=== PATIENT | female | born 2000 | race Caucasian/White ===

== ENCOUNTER 2021-07-31 13:10 | Emergency (ER) | payer OTHER ==
[~2021-07-31] VITALS: Ht 165.1 cm; Wt 70.0 kg
[2021-07-31 16:30] LABS: BASOPHILS % 1.2 % (0.0-2.0); EOSINOPHILS % 9.6 % (0.0-5.0); HEMATOCRIT. 38.7 % (36.0-48.0); HEMOGLOBIN. 12.8 g/dL (12.0-16.0); LYMPHOCYTES % 28.1 % (20.0-50.0); MEAN CORPUSCULAR HEMOGLOBIN 32.9 pg (28.0-32.0); MEAN CORPUSCULAR VOLUME 99.6 fL (81.0-99.0); MEAN PLATELET VOLUME 8.5 fl (7.4-10.4); MONOCYTES % 5.7 % (2.0-8.0); NEUTROPHILS % 55.4 % (40.0-76.0); PLATELET 248 x1000/uL (130-400); RED BLOOD CELL COUNT 3.89 mill/uL (4.2-5.4); RED CELL DISTRIBUTION WIDTH 13.7 % (11.6-14.6)
[2021-07-31 16:34] LABS: CHLORIDE 102 mEq/L (98-107)
[2021-07-31 16:38] LABS: PROTHROMBIN TIME 10.3 sec (9.6-11.0)
[2021-07-31 17:38] VITALS: BP 129/86
== END 2021-07-31 18:05 | disposition short-term general hospital (02) ==
LOC: ER 13:10 → CANBEDREQ 17:58 → ER 18:05
DX: T82.514A Breakdown (mechanical) of infusion catheter, initial encounter (principal); Y82.8 Other medical devices associated with adverse incidents; Y92.018 Other place in single-family (private) house as the place of occurrence of the external cause; N18.6 End stage renal disease; F84.0 Autistic disorder; G40.909 Epilepsy, unspecified, not intractable, without status epilepticus; Z99.2 Dependence on renal dialysis; Z91.15 Patient's noncompliance with renal dialysis
CPT/HCPCS: 36415; 71045; 80053; 85025; 99285

== ENCOUNTER 2021-10-19 16:27 | Emergency (ER) | payer MEDICAID, OTHER ==
[~2021-10-19] VITALS: Ht 157.5 cm; Wt 65.0 kg
[2021-10-19 20:06] LABS: BASOPHILS % 0.9 % (0.0-2.0); EOSINOPHILS % 1.6 % (0.0-5.0); HEMATOCRIT. 27.2 % (36.0-48.0); LYMPHOCYTES % 23.3 % (20.0-50.0); MEAN CORPUSCULAR HEMOGLOBIN 33.4 pg (28.0-32.0); MEAN CORPUSCULAR VOLUME 101.5 fL (81.0-99.0); MEAN PLATELET VOLUME 7.9 fl (7.4-10.4); MONOCYTES % 13.4 % (2.0-8.0); NEUTROPHILS % 60.8 % (40.0-76.0); PLATELET 405 x1000/uL (130-400); RED BLOOD CELL COUNT 2.68 mill/uL (4.2-5.4); RED CELL DISTRIBUTION WIDTH 15.1 % (11.6-14.6)
[2021-10-19 20:13] LABS: CHLORIDE 117 mEq/L (98-107)
[2021-10-19 20:35] VITALS: BP 123/79
== END 2021-10-19 20:49 | disposition short-term general hospital (02) ==
LOC: ER 16:27
DX: U07.1 COVID-19 (principal); T82.41XA Breakdown (mechanical) of vascular dialysis catheter, initial encounter; X58.XXXA Exposure to other specified factors, initial encounter
CPT/HCPCS: 36415; 71045; 80053; 85025; 87426; 99285

== ENCOUNTER 2021-11-10 09:00 | Emergency (ER) | payer MEDICAID, OTHER ==
[~2021-11-10] VITALS: Ht 154.9 cm; Wt 54.0 kg
[2021-11-10 09:11] VITALS: BP 118/75
[2021-11-10 10:09] LABS: BASOPHILS % 1.5 % (0.0-2.0); EOSINOPHILS % 2.2 % (0.0-5.0); HEMATOCRIT. 34.8 % (36.0-48.0); HEMOGLOBIN. 11.2 g/dL (12.0-16.0); LYMPHOCYTES % 26.1 % (20.0-50.0); MEAN CORPUSCULAR HEMOGLOBIN 35.1 pg (28.0-32.0); MEAN CORPUSCULAR VOLUME 109.2 fL (81.0-99.0); MEAN PLATELET VOLUME 7.8 fl (7.4-10.4); MONOCYTES % 6.8 % (2.0-8.0); NEUTROPHILS % 63.4 % (40.0-76.0); PLATELET 458 x1000/uL (130-400); RED BLOOD CELL COUNT 3.19 mill/uL (4.2-5.4); RED CELL DISTRIBUTION WIDTH 19.4 % (11.6-14.6)
[2021-11-10 10:16] LABS: CHLORIDE 102 mEq/L (98-107)
[2021-11-10 10:21] LABS: PARTIAL THROMBOPLASTIN TIME 28.4 sec (23.4-31.0); PROTHROMBIN TIME 10.8 sec (9.6-11.0)
[2021-11-10] MEDS ORDERED: CEFAZOLIN 1000MG PREMIX 50 ML IV SCH (12:15)
[2021-11-10] MEDS ORDERED: LIDOCAINE HCL 1% 20ML VIAL (Pyxis) INJ ONE (12:39)
== END 2021-11-10 12:57 | disposition home or self-care (01) ==
LOC: ER 09:00
DX: T85.618A Breakdown (mechanical) of other specified internal prosthetic devices, implants and grafts, initial encounter (principal); N18.6 End stage renal disease; D53.9 Nutritional anemia, unspecified; Z20.822 Contact with and (suspected) exposure to COVID-19; Z99.2 Dependence on renal dialysis; Z98.890 Other specified postprocedural states
CPT/HCPCS: 36415; 71045; 80053; 85025; 87426; 99284; J1642; J3490

== ENCOUNTER 2021-11-20 09:16 | Emergency (ER) | payer OTHER ==
[~2021-11-20] VITALS: Ht 165.1 cm; Wt 59.0 kg
[2021-11-20 12:46] LABS: BASOPHILS % 1.4 % (0.0-2.0); EOSINOPHILS % 3.9 % (0.0-5.0); HEMATOCRIT. 41.9 % (36.0-48.0); HEMOGLOBIN. 13.6 g/dL (12.0-16.0); LYMPHOCYTES % 20.1 % (20.0-50.0); MEAN CORPUSCULAR HEMOGLOBIN 35.6 pg (28.0-32.0); MEAN CORPUSCULAR VOLUME 109.9 fL (81.0-99.0); MEAN PLATELET VOLUME 8.1 fl (7.4-10.4); MONOCYTES % 4.3 % (2.0-8.0); NEUTROPHILS % 70.3 % (40.0-76.0); PLATELET 383 x1000/uL (130-400); RED BLOOD CELL COUNT 3.82 mill/uL (4.2-5.4); RED CELL DISTRIBUTION WIDTH 17.9 % (11.6-14.6)
[2021-11-20 12:52] LABS: CHLORIDE 113 mEq/L (98-107)
[2021-11-20 13:25] LABS: HCG SCREEN NEGATIVE
[2021-11-20 15:28] LABS: PROTHROMBIN TIME 10.5 sec (9.6-11.0)
[2021-11-20 18:13] VITALS: BP 120/88
== END 2021-11-20 18:29 | disposition short-term general hospital (02) ==
LOC: ER 09:16 → CANBEDREQ 18:46
DX: T82.41XA Breakdown (mechanical) of vascular dialysis catheter, initial encounter (principal); N18.6 End stage renal disease; Z20.822 Contact with and (suspected) exposure to COVID-19; E83.52 Hypercalcemia; Z99.2 Dependence on renal dialysis; Y82.8 Other medical devices associated with adverse incidents; Y92.89 Other specified places as the place of occurrence of the external cause
CPT/HCPCS: 36415; 71045; 80053; 84703; 85025; 87426; 93005; 99285

== ENCOUNTER 2021-11-24 07:06 | Emergency (ER) | payer OTHER ==
[~2021-11-24] VITALS: Ht 165.1 cm; Wt 76.0 kg
[2021-11-24] MEDS ORDERED: PIPERACILLIN/TAZ 3.375G PREMIX 50 ML IV ONE (08:00)
[2021-11-24 08:33] LABS: EOSINOPHILS % 6.4 % (0.0-5.0); HEMATOCRIT. 39.3 % (36.0-48.0); HEMOGLOBIN. 12.7 g/dL (12.0-16.0); LYMPHOCYTES % 15.3 % (20.0-50.0); MEAN CORPUSCULAR HEMOGLOBIN 35.4 pg (28.0-32.0); MEAN CORPUSCULAR VOLUME 109.4 fL (81.0-99.0); MEAN PLATELET VOLUME 8.3 fl (7.4-10.4); MONOCYTES % 7.9 % (2.0-8.0); NEUTROPHILS % 69.4 % (40.0-76.0); PLATELET 268 x1000/uL (130-400); RED CELL DISTRIBUTION WIDTH 16.8 % (11.6-14.6)
[2021-11-24 08:43] LABS: CHLORIDE 110 mEq/L (98-107)
[2021-11-24 08:44] LABS: HCG SCREEN NEGATIVE
[2021-11-24 08:48] LABS: C REACTIVE PROTEIN QUANT 6.5 mg/L (0.0-3.0)
[2021-11-24 09:18] LABS: CLARITY URINE CLEAR (CLEAR); COLOR URINE YELLOW (YELLOW); KETONES URINE NEGATIVE (NEGATIVE); LEUKOCYTE ESTERASE URINE NEGATIVE (NEGATIVE); NITRITE URINE NEGATIVE (NEGATIVE); OCCULT BLOOD URINE TRACE (NEGATIVE); PROTEIN URINE 4+ (NEGATIVE); SPECIFIC GRAVITY URINE 1.018 (1.005-1.030); UROBILINOGEN URINE 0.2 E.U./dL (0.2-1.0)
[2021-11-24 12:00] VITALS: BP 109/63
== END 2021-11-24 12:19 | disposition short-term general hospital (02) ==
LOC: ER 07:06 → CANBEDREQ 11-25 22:44
DX: L03.114 Cellulitis of left upper limb (principal); T79.5XXA Traumatic anuria, initial encounter; Z20.822 Contact with and (suspected) exposure to COVID-19; Z86.59 Personal history of other mental and behavioral disorders; X58.XXXA Exposure to other specified factors, initial encounter; Y93.89 Activity, other specified; Y92.89 Other specified places as the place of occurrence of the external cause; Y99.8 Other external cause status
CPT/HCPCS: 36415; 71045; 73090; 80053; 81003; 83605; 84145; 84703; 85025; 86140; 87040; 87086; 87426; 93005; 93922; 93971; 96365; 96366; 99285; J2543

== ENCOUNTER 2021-12-01 09:28 | Emergency (ER) | payer OTHER ==
[~2021-12-01] VITALS: Ht 160 cm; Wt 50.0 kg
[2021-12-01 10:09] LABS: BASOPHILS % 1.1 % (0.0-2.0); EOSINOPHILS % 3.8 % (0.0-5.0); HEMATOCRIT. 37.5 % (36.0-48.0); HEMOGLOBIN. 12.3 g/dL (12.0-16.0); LYMPHOCYTES % 15.8 % (20.0-50.0); MEAN CORPUSCULAR HEMOGLOBIN 34.7 pg (28.0-32.0); MEAN CORPUSCULAR VOLUME 105.8 fL (81.0-99.0); MEAN PLATELET VOLUME 8.4 fl (7.4-10.4); MONOCYTES % 5.9 % (2.0-8.0); NEUTROPHILS % 73.4 % (40.0-76.0); PLATELET 227 x1000/uL (130-400); RED BLOOD CELL COUNT 3.54 mill/uL (4.2-5.4)
[2021-12-01 10:15] LABS: CHLORIDE 106 mEq/L (98-107)
[2021-12-01 10:20] LABS: PROTHROMBIN TIME 10.5 sec (9.6-11.0)
[2021-12-01] MEDS ORDERED: LIDOCAINE HCL 1% 30ML VIAL (10MG/ML) ONE (13:37)
[2021-12-01] MEDS ORDERED: CEFAZOLIN 1000MG PREMIX 50 ML IV ONE ×2 (13:37→14:00)
[2021-12-01] MEDS ORDERED: PROPOFOL 200MG/20ML VIAL IV ONE (13:57)
[2021-12-01] MEDS ORDERED: FENTANYL CITRATE/PF 50MCG/ML 2ML VIAL ONE (13:57)
[2021-12-01] MEDS ORDERED: MIDAZOLAM HCL 2 MG/2 ML VIAL ONE (13:57)
[2021-12-01] MEDS ORDERED: ONDANSETRON HCL 4MG/2ML INJ ONE (13:58)
[2021-12-01] MEDS ORDERED: DEXAMETHASONE 4MG/ML 1ML VIAL ONE (13:58)
[2021-12-01] MEDS ORDERED: ONDANSETRON HCL 4MG/2ML INJ IV PRN (14:45)
[2021-12-01] MEDS ORDERED: HYDROMORPHONE HCL/PF 2MG/ML CPJ IV PRN (14:45)
[2021-12-01] MEDS ORDERED: LABETALOL 5MG/ML SYR 20 MG/4 ML SYRINGE IV PRN (14:45)
[2021-12-01] MEDS ORDERED: MEPERIDINE HCL/PF 25MG/ML CPJ IV PRN (14:45)
[2021-12-01] MEDS ORDERED: ACETAMINOPHEN 325MG TABLET PO ONE (19:00)
[2021-12-01 21:57] VITALS: BP 122/72
== END 2021-12-01 21:57 | disposition home or self-care (01) ==
LOC: ER 09:28
DX: T85.618A Breakdown (mechanical) of other specified internal prosthetic devices, implants and grafts, initial encounter (principal); I12.9 Hypertensive chronic kidney disease with stage 1 through stage 4 chronic kidney disease, or unspecified chronic kidney disease; N18.9 Chronic kidney disease, unspecified; Z20.822 Contact with and (suspected) exposure to COVID-19; Z86.59 Personal history of other mental and behavioral disorders
CPT/HCPCS: 36415; 71045; 76937; 77001; 80053; 85025; 85610; 87426; 93005; 96365; 99285; C1725; C1750; C1769; J0690; J1100; J1642; J2250; J2405; J2704; J3010; J3490; J7040; Z7610

== ENCOUNTER 2021-12-10 20:41 | Emergency (ER) | payer OTHER ==
[~2021-12-10] VITALS: Ht 162.6 cm; Wt 57.0 kg
[2021-12-10 22:50] LABS: BASOPHILS % 1.3 % (0.0-2.0); EOSINOPHILS % 5.4 % (0.0-5.0); HEMATOCRIT. 38.4 % (36.0-48.0); HEMOGLOBIN. 12.4 g/dL (12.0-16.0); MEAN CORPUSCULAR HEMOGLOBIN 34.2 pg (28.0-32.0); MEAN PLATELET VOLUME 8.2 fl (7.4-10.4); MONOCYTES % 7.6 % (2.0-8.0); NEUTROPHILS % 63.7 % (40.0-76.0); PLATELET 343 x1000/uL (130-400); RED BLOOD CELL COUNT 3.62 mill/uL (4.2-5.4); RED CELL DISTRIBUTION WIDTH 15.5 % (11.6-14.6)
[2021-12-10 22:55] LABS: CHLORIDE 105 mEq/L (98-107)
[2021-12-10 23:01] LABS: ETHANOL BLOOD < 10 mg/dL
[2021-12-10 23:08] LABS: B-HCG QUANTITATIVE < 1 mIU/mL (<3)
[2021-12-11 03:57] VITALS: BP 128/67
== END 2021-12-11 04:01 | disposition home or self-care (01) ==
LOC: ER 20:41
DX: G40.909 Epilepsy, unspecified, not intractable, without status epilepticus (principal); I12.0 Hypertensive chronic kidney disease with stage 5 chronic kidney disease or end stage renal disease; N18.6 End stage renal disease; Z99.2 Dependence on renal dialysis
CPT/HCPCS: 36415; 71045; 74176; 80053; 80320; 84484; 84702; 85025; 93005; 99285; G0480

== ENCOUNTER 2021-12-11 08:56 | Emergency (ER) | payer OTHER ==
[~2021-12-11] VITALS: Ht 162.6 cm; Wt 56.0 kg
[2021-12-11 10:01] LABS: BASOPHILS % 0.9 % (0.0-2.0); EOSINOPHILS % 5.1 % (0.0-5.0); HEMATOCRIT. 38.2 % (36.0-48.0); HEMOGLOBIN. 12.2 g/dL (12.0-16.0); LYMPHOCYTES % 13.7 % (20.0-50.0); MEAN CORPUSCULAR HEMOGLOBIN 34.4 pg (28.0-32.0); MEAN CORPUSCULAR VOLUME 107.5 fL (81.0-99.0); MEAN PLATELET VOLUME 8.2 fl (7.4-10.4); MONOCYTES % 7.2 % (2.0-8.0); NEUTROPHILS % 73.1 % (40.0-76.0); PLATELET 352 x1000/uL (130-400); RED BLOOD CELL COUNT 3.55 mill/uL (4.2-5.4); RED CELL DISTRIBUTION WIDTH 15.8 % (11.6-14.6)
[2021-12-11 10:02] LABS: CHLORIDE 106 mEq/L (98-107)
[2021-12-11 10:12] LABS: HCG SCREEN NEGATIVE
[2021-12-11 13:30] VITALS: BP 118/65
== END 2021-12-11 13:32 | disposition home or self-care (01) ==
LOC: ER 08:56
DX: G40.909 Epilepsy, unspecified, not intractable, without status epilepticus (principal); I12.0 Hypertensive chronic kidney disease with stage 5 chronic kidney disease or end stage renal disease; N18.6 End stage renal disease; Z99.2 Dependence on renal dialysis
CPT/HCPCS: 36415; 80053; 84703; 85025; 93005; 99284

== ENCOUNTER 2022-01-03 09:31 | Emergency (ER) | payer MEDICAID, OTHER ==
[~2022-01-03] VITALS: Ht 162.6 cm; Wt 61.0 kg
[2022-01-03 10:13] LABS: BASOPHILS % 1.1 % (0.0-2.0); EOSINOPHILS % 4.4 % (0.0-5.0); HEMOGLOBIN. 13.3 g/dL (12.0-16.0); LYMPHOCYTES % 17.6 % (20.0-50.0); MEAN CORPUSCULAR HEMOGLOBIN 34.6 pg (28.0-32.0); MEAN CORPUSCULAR VOLUME 103.9 fL (81.0-99.0); MEAN PLATELET VOLUME 9.4 fl (7.4-10.4); NEUTROPHILS % 71.9 % (40.0-76.0); PLATELET 220 x1000/uL (130-400); RED BLOOD CELL COUNT 3.85 mill/uL (4.2-5.4); RED CELL DISTRIBUTION WIDTH 14.5 % (11.6-14.6)
[2022-01-03 10:23] LABS: PROTHROMBIN TIME 10.5 sec (9.6-11.0)
[2022-01-03 10:27] LABS: CHLORIDE 103 mEq/L (98-107)
[2022-01-03 15:04] VITALS: BP 102/72
== END 2022-01-03 15:05 | disposition home or self-care (01) ==
LOC: ER 09:31
DX: T82.49XA Other complication of vascular dialysis catheter, initial encounter (principal); I12.0 Hypertensive chronic kidney disease with stage 5 chronic kidney disease or end stage renal disease; N18.6 End stage renal disease; F99 Mental disorder, not otherwise specified; Z99.2 Dependence on renal dialysis; Y84.1 Kidney dialysis as the cause of abnormal reaction of the patient, or of later complication, without mention of misadventure at the time of the procedure; Y92.018 Other place in single-family (private) house as the place of occurrence of the external cause
CPT/HCPCS: 36415; 71045; 80053; 85025; 87426; 99285

== ENCOUNTER 2022-01-08 08:57 | Emergency (ER) | payer OTHER ==
[~2022-01-08] VITALS: Ht 162.6 cm; Wt 63.1 kg
[2022-01-08] VITALS (14 sets, daily range): BP systolic 113–128; BP diastolic 71–86
[2022-01-08 09:43] LABS: BASOPHILS % 0.9 % (0.0-2.0); EOSINOPHILS % 6.2 % (0.0-5.0); HEMOGLOBIN. 13.4 g/dL (12.0-16.0); LYMPHOCYTES % 17.2 % (20.0-50.0); MEAN CORPUSCULAR HEMOGLOBIN 34.2 pg (28.0-32.0); MEAN CORPUSCULAR VOLUME 104.3 fL (81.0-99.0); MEAN PLATELET VOLUME 10.1 fl (7.4-10.4); NEUTROPHILS % 69.7 % (40.0-76.0); PLATELET 196 x1000/uL (130-400); RED BLOOD CELL COUNT 3.93 mill/uL (4.2-5.4); RED CELL DISTRIBUTION WIDTH 14.6 % (11.6-14.6)
[2022-01-08 09:51] LABS: CHLORIDE 107 mEq/L (98-107)
[2022-01-08] MEDS ORDERED: LIDOCAINE HCL 1% 20ML VIAL (Pyxis) INJ ONE (10:54)
[2022-01-08] MEDS ORDERED: HEPARIN 1000 UNITS/ML 10ML ONE (10:55)
[2022-01-08] MEDS ORDERED: FENTANYL CITRATE/PF 50MCG/ML 2ML VIAL ONE (11:13)
[2022-01-08] MEDS ORDERED: CEFAZOLIN 1000MG PREMIX 50 ML IV ONE ×2 (11:13→11:30)
[2022-01-08] MEDS ORDERED: FENTANYL CITRATE/PF 50MCG/ML 2ML VIAL IV ONE (11:30)
== END 2022-01-08 12:45 | disposition short-term general hospital (02) ==
LOC: ER 08:57 → CANBEDREQ 21:08
DX: T82.41XA Breakdown (mechanical) of vascular dialysis catheter, initial encounter (principal); I12.0 Hypertensive chronic kidney disease with stage 5 chronic kidney disease or end stage renal disease; N18.6 End stage renal disease; Z20.822 Contact with and (suspected) exposure to COVID-19; Y82.8 Other medical devices associated with adverse incidents; Y92.538 Other ambulatory health services establishments as the place of occurrence of the external cause; Z99.2 Dependence on renal dialysis; F79 Unspecified intellectual disabilities; G40.909 Epilepsy, unspecified, not intractable, without status epilepticus
CPT/HCPCS: 36415; 36558; 71045; 77001; 80053; 85025; 87426; 93005; 96365; 96375; 99285; C1750; C1769; J0690; J1644; J3010; J3490; Z7610; 99152; 99153; G0500

== ENCOUNTER 2022-02-15 16:03 | Emergency (ER) | payer OTHER ==
[~2022-02-15] VITALS: Ht 167.6 cm; Wt 68.0 kg
[2022-02-15] MEDS ORDERED: ACETAMINOPHEN 325MG TABLET PO STA (16:56)
[2022-02-15 17:40] LABS: BASOPHILS % 1.2 % (0.0-2.0); EOSINOPHILS % 8.6 % (0.0-5.0); HEMATOCRIT. 28.1 % (36.0-48.0); HEMOGLOBIN. 9.3 g/dL (12.0-16.0); LYMPHOCYTES % 21.9 % (20.0-50.0); MEAN CORPUSCULAR HEMOGLOBIN 33.6 pg (28.0-32.0); MEAN CORPUSCULAR VOLUME 101.4 fL (81.0-99.0); MEAN PLATELET VOLUME 8.4 fl (7.4-10.4); MONOCYTES % 7.3 % (2.0-8.0); PLATELET 245 x1000/uL (130-400); RED BLOOD CELL COUNT 2.77 mill/uL (4.2-5.4)
[2022-02-15 17:53] LABS: CHLORIDE 114 mEq/L (98-107)
[2022-02-15] MEDS ORDERED: ACETAMINOPHEN 325MG TABLET PO NR (19:38)
[2022-02-16 01:40] VITALS: BP 106/67
== END 2022-02-16 01:45 | disposition home or self-care (01) ==
LOC: ER 16:03
DX: R52 Pain, unspecified (principal); I10 Essential (primary) hypertension; Z99.2 Dependence on renal dialysis; D64.9 Anemia, unspecified; Z98.890 Other specified postprocedural states
CPT/HCPCS: 36415; 71045; 80053; 83605; 85025; 99285

== ENCOUNTER 2022-03-06 13:20 | Emergency (ER) | payer OTHER ==
[~2022-03-06] VITALS: Ht 167.6 cm; Wt 70.0 kg
[2022-03-06 13:39] VITALS: BP 117/65
== END 2022-03-06 17:15 | disposition home or self-care (01) ==
LOC: ER 14:49
DX: T82.838A Hemorrhage due to vascular prosthetic devices, implants and grafts, initial encounter (principal); I10 Essential (primary) hypertension; Z98.890 Other specified postprocedural states; Z86.59 Personal history of other mental and behavioral disorders
CPT/HCPCS: 99283

== ENCOUNTER 2022-03-26 10:55 | Emergency (ER) | payer OTHER ==
[~2022-03-26] VITALS: Ht 157.5 cm; Wt 70.0 kg
[2022-03-26 12:40] LABS: BASOPHILS % 0.9 % (0.0-2.0); EOSINOPHILS % 4.4 % (0.0-5.0); LYMPHOCYTES % 14.4 % (20.0-50.0); MEAN CORPUSCULAR HEMOGLOBIN 33.7 pg (28.0-32.0); MEAN CORPUSCULAR VOLUME 103.2 fL (81.0-99.0); MEAN PLATELET VOLUME 9.2 fl (7.4-10.4); MONOCYTES % 5.7 % (2.0-8.0); NEUTROPHILS % 74.6 % (40.0-76.0); PLATELET 223 x1000/uL (130-400); RED BLOOD CELL COUNT 1.52 mill/uL (4.2-5.4); RED CELL DISTRIBUTION WIDTH 15.6 % (11.6-14.6)
[2022-03-26 12:43] LABS: HEMATOCRIT. 15.7 % (36.0-48.0); HEMOGLOBIN. 5.1 g/dL (12.0-16.0)
[2022-03-26 12:50] LABS: CHLORIDE 106 mEq/L (98-107)
[2022-03-26 14:21] VITALS: BP 123/62
== END 2022-03-26 15:20 | disposition short-term general hospital (02) ==
LOC: ER 13:05
DX: D64.89 Other specified anemias (principal); E11.649 Type 2 diabetes mellitus with hypoglycemia without coma; J02.9 Acute pharyngitis, unspecified; R05.9 Cough, unspecified; I12.0 Hypertensive chronic kidney disease with stage 5 chronic kidney disease or end stage renal disease; N18.6 End stage renal disease; E11.22 Type 2 diabetes mellitus with diabetic chronic kidney disease; Z99.2 Dependence on renal dialysis
CPT/HCPCS: 36415; 80053; 82962; 85025; 86850; 86900; 93005; 99284

== ENCOUNTER 2022-04-10 09:04 | Emergency (ER) | payer OTHER ==
[~2022-04-10] VITALS: Ht 167.6 cm; Wt 81.0 kg
[2022-04-10 12:20] LABS: CHLORIDE 108 mEq/L (98-107)
[2022-04-10 12:32] LABS: EOSINOPHILS % 6.2 % (0.0-5.0); HEMATOCRIT. 26.6 % (36.0-48.0); HEMOGLOBIN. 8.7 g/dL (12.0-16.0); LYMPHOCYTES % 19.6 % (20.0-50.0); MEAN CORPUSCULAR HEMOGLOBIN 32.8 pg (28.0-32.0); MEAN CORPUSCULAR VOLUME 100.4 fL (81.0-99.0); MEAN PLATELET VOLUME 8.4 fl (7.4-10.4); MONOCYTES % 6.4 % (2.0-8.0); NEUTROPHILS % 66.8 % (40.0-76.0); PLATELET 286 x1000/uL (130-400); RED BLOOD CELL COUNT 2.65 mill/uL (4.2-5.4); RED CELL DISTRIBUTION WIDTH 18.7 % (11.6-14.6)
[2022-04-10 12:47] LABS: PROTHROMBIN TIME 10.5 sec (9.6-11.0)
[2022-04-10] MEDS ORDERED: LIDOCAINE HCL 1% 10 MG/ML 10ML VIAL ONE (12:54)
[2022-04-10 17:25] VITALS: BP 111/55
== END 2022-04-10 17:40 | disposition home or self-care (01) ==
LOC: ER 09:12
DX: Z49.01 Encounter for fitting and adjustment of extracorporeal dialysis catheter (principal); Z20.822 Contact with and (suspected) exposure to COVID-19
CPT/HCPCS: 36415; 36589; 80053; 85025; 85610; 87426; 99283; C9803; J3490

== ENCOUNTER 2022-05-18 08:17 | Emergency (ER) | payer OTHER, MEDICAID ==
[~2022-05-18] VITALS: Ht 160 cm; Wt 64.0 kg
[2022-05-18 08:55] LABS: BASOPHILS % 1.2 % (0.0-2.0); HEMATOCRIT. 26.3 % (36.0-48.0); HEMOGLOBIN. 9.2 g/dL (12.0-16.0); LYMPHOCYTES % 23.3 % (20.0-50.0); MEAN CORPUSCULAR HEMOGLOBIN 36.5 pg (28.0-32.0); MEAN CORPUSCULAR VOLUME 103.6 fL (81.0-99.0); MEAN PLATELET VOLUME 8.4 fl (7.4-10.4); MONOCYTES % 7.3 % (2.0-8.0); NEUTROPHILS % 58.2 % (40.0-76.0); PLATELET 280 x1000/uL (130-400); RED BLOOD CELL COUNT 2.54 mill/uL (4.2-5.4); RED CELL DISTRIBUTION WIDTH 16.6 % (11.6-14.6)
[2022-05-18 08:59] LABS: CHLORIDE 105 mEq/L (98-107)
[2022-05-18 09:07] LABS: ETHANOL BLOOD < 10 mg/dL
[2022-05-18] MEDS ORDERED: LEVETIRACETAM 1000MG PREMIX 100 ML IV ONE (09:15)
[2022-05-18 09:18] LABS: HCG SCREEN NEGATIVE
[2022-05-18 11:38] VITALS: BP 105/56
== END 2022-05-18 13:02 | disposition home or self-care (01) ==
LOC: ER 08:17
DX: R56.9 Unspecified convulsions (principal); N18.6 End stage renal disease; Z98.890 Other specified postprocedural states; Z99.2 Dependence on renal dialysis
CPT/HCPCS: 36415; 80053; 80320; 84703; 85025; 93005; 96374; 99284; J1953; Z7610; G0480

== ENCOUNTER 2022-08-01 10:21 | Emergency (ER) | payer MEDICAID, OTHER ==
[~2022-08-01] VITALS: Ht 162.6 cm; Wt 59.0 kg
[2022-08-01 11:42] LABS: BASOPHILS % 0.9 % (0.0-2.0); HEMATOCRIT. 25.5 % (36.0-48.0); HEMOGLOBIN. 8.9 g/dL (12.0-16.0); LYMPHOCYTES % 22.8 % (20.0-50.0); MEAN CORPUSCULAR HEMOGLOBIN 36.2 pg (28.0-32.0); MEAN CORPUSCULAR VOLUME 104.4 fL (81.0-99.0); MEAN PLATELET VOLUME 10.3 fl (7.4-10.4); MONOCYTES % 7.5 % (2.0-8.0); NEUTROPHILS % 55.8 % (40.0-76.0); PLATELET 213 x1000/uL (130-400); RED BLOOD CELL COUNT 2.45 mill/uL (4.2-5.4); RED CELL DISTRIBUTION WIDTH 12.1 % (11.6-14.6)
[2022-08-01 11:51] LABS: CHLORIDE 103 mEq/L (98-107)
[2022-08-01 12:00] VITALS: BP 124/70
[2022-08-01 12:00] LABS: ETHANOL BLOOD < 10 mg/dL
== END 2022-08-01 13:26 | disposition home or self-care (01) ==
LOC: ER 10:21 → CANBEDREQ 13:55
DX: G40.909 Epilepsy, unspecified, not intractable, without status epilepticus (principal); N18.6 End stage renal disease; F84.0 Autistic disorder; Z99.2 Dependence on renal dialysis; Z79.899 Other long term (current) drug therapy
CPT/HCPCS: 36415; 80053; 80320; 85025; 93005; 99284; G0480

== ENCOUNTER 2022-08-20 11:34 | Emergency (ER) | payer OTHER ==
[~2022-08-20] VITALS: Ht 165.1 cm; Wt 63.0 kg
[2022-08-20 14:04] VITALS: BP 103/62
[2022-08-20 15:10] LABS: BASOPHILS % 0.7 % (0.0-2.0); EOSINOPHILS % 9.1 % (0.0-5.0); HEMATOCRIT. 24.2 % (36.0-48.0); HEMOGLOBIN. 8.3 g/dL (12.0-16.0); MEAN CORPUSCULAR VOLUME 104.8 fL (81.0-99.0); MEAN PLATELET VOLUME 8.3 fl (7.4-10.4); MONOCYTES % 6.1 % (2.0-8.0); NEUTROPHILS % 65.1 % (40.0-76.0); PLATELET 244 x1000/uL (130-400); RED BLOOD CELL COUNT 2.31 mill/uL (4.2-5.4)
[2022-08-20 15:24] LABS: CHLORIDE 100 mEq/L (98-107)
== END 2022-08-20 15:51 | disposition home or self-care (01) ==
LOC: ER 11:53
DX: T82.838A Hemorrhage due to vascular prosthetic devices, implants and grafts, initial encounter (principal); Y82.8 Other medical devices associated with adverse incidents; I12.0 Hypertensive chronic kidney disease with stage 5 chronic kidney disease or end stage renal disease; N18.6 End stage renal disease; D64.9 Anemia, unspecified; G40.909 Epilepsy, unspecified, not intractable, without status epilepticus; Y93.89 Activity, other specified; Y92.530 Ambulatory surgery center as the place of occurrence of the external cause; Z99.2 Dependence on renal dialysis
CPT/HCPCS: 36415; 80053; 85025; 99283